=== PATIENT | male | born 1950 | race Caucasian/White ===

== ENCOUNTER 2018-01-13 15:53 | Outpatient (CLI) | payer MEDICARE, BC ==
--- NOTE | 2018-01-13 17:53 | MRI ---
MRI LUMBAR SPINE NONCONTRAST 01/13/18 HISTORY: Low back pain with radiculopathy. FINDINGS: Radiographs are not available for direct correlation, therefore the lowest lumbar type vertebra will be designated as L5, with the remainder numbered accordingly. Images including the retroperitoneum shows cysts arising from the cortex of the left kidney. Heteroge neity of the bone marrow has the appearance of fatty replacement. No edema is reliably demonstrated a side from type I discogenic end plate changes at the L5 and S1 levels. The conus medullaris has a normal appearance. T12-L1, L1-2, L2-3, L3-4: Mild osteophytosis. Central canal and neural foramina are patent. L4-5: Thecal sac is patent. Degenerative changes result in mild right and moderate left foraminal saira noses. L5-S1: Disc space narrowing. Minimal bulge. Thecal sac is patent. Degenerative changes result in mode rate bilateral foraminal stenoses. IMPRESSION: Mild to moderate degenerative changes of the lumbar spine, including bilateral foraminal stenosis at the lowest two levels, as detailed above. POS: SNEHA
== END 2018-01-13 15:54 | disposition home or self-care (01) ==
LOC: SCSMRI 15:53
PROVIDERS: ATTEND Psychiatry & Neurology Neurology
DX: M62.81 Muscle weakness (generalized) (principal); M47.896 Other spondylosis, lumbar region; M99.83 Other biomechanical lesions of lumbar region
CPT/HCPCS: 72148

== ENCOUNTER 2020-02-20 09:47 | Outpatient (CLI) | payer MEDICARE, BC ==
--- NOTE | 2020-02-20 11:27 | MRI ---
MRI OF THE LEFT KNEE WITHOUT CONTRAST: INDICATION: Left knee pain. COMPARISON: None. FINDINGS: There is a small joint effusion and small popliteal cyst. There is full-thickness soft tissue cartilage fissuring involving the medial patellar facet measuring 1.8 mm without underlying edema. There is mild diffuse chondrosis. There is some mild irregularit y involving the central trochlea. There is heterogeneous hyperintense T2 signal involving the ACL consistent with changes of a mucoid d egenerative. There is degenerative subchondral cyst-like abnormality near the bed of the ACL. There is a horizontally oriented tear involving the body and posterior horn of the medial meniscus. The lateral meniscus appears intact. There is mild diffuse chondrosis involving the femorotibial compartments with a focal full-thickness defect involving the central lateral femoral condyle measuring approximately 7 mm. There are small m arginal osteophytes affecting the major compartments. The MCL, LCLC, PCL, and extensor mechanism are intact. IMPRESSION: 1. Mild osteoarthrosis of the left knee. 2. Medial meniscal tear. 3. 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 POS: BH
== END 2020-02-20 09:48 | disposition home or self-care (01) ==
LOC: MRI 09:47
PROVIDERS: ATTEND Orthopaedic Surgery
DX: M25.562 Pain in left knee (principal); S83.242D Other tear of medial meniscus, current injury, left knee, subsequent encounter; S83.512A Sprain of anterior cruciate ligament of left knee, initial encounter; M17.12 Unilateral primary osteoarthritis, left knee

== ENCOUNTER 2020-03-16 06:37 | Outpatient (CLI) | payer MEDICARE, BC, OTHER ==
[2020-03-16 18:00] LABS: #Eosinphils 0.2 thou/uL (0.0-0.7); #Lymphocytes 1.8 thou/uL (1.20-3.40); #Monocytes 0.5 thou/uL (0.11-0.59); #Neutrophils 3.5 thou/uL (1.40-6.50); %Basophils 0.3 % (0.0-1.0); %Eosinophils 3.2 % (0.0-10.0); %Lymphocytes 29.8 % (21.0-51.0); %Monocytes 8.5 % (0.0-10.0); %Neutrophils 58.2 % (42.0-75.0); Hemoglobin 13.9 g/dL (14.0-18.0); Mean Corpuscular HGB CONC 33.6 g/dL (32.0-36.0); Mean Corpuscular Hemoglobin 31.5 pg (27.0-31.0); Mean Corpuscular Volume 93.8 fL (78.0-98.0); Mean Platelet Volume 7.7 fL (7.4-10.4); Platelet Count 279 thou/uL (130-400); RBC Distribution Width 11.7 % (11.5-14.5); Red Blood Cell (RBC) Count 4.42 mill/uL (4.70-6.10)
[2020-03-16 18:08] LABS: Anion Gap 12 mmol/L (10-20); BUN (Urea Nitrogen) 16 mg/dL (8.4-25.7); Calc. Creatinine Clearance 0 mL/min (70-130); Calcium 9.6 mg/dL (7.8-10.44); Carbon Dioxide 27 mmol/L (23-31); Chloride 105 mmol/L (98-107); Estimated GFR-MDRD 62; Glucose 101 mg/dL (80-115); Sodium 140 mmol/L (136-145)
[2020-03-17 13:12] LABS: SARS-CoV-2 MS2 Positive; SARS-CoV-2 N Gene Negative; SARS-CoV-2 S Gene Negative; SARS-CoV-2 orf1ab Negative
== END 2020-03-16 06:38 | disposition home or self-care (01) ==
LOC: LABBT 06:37
PROVIDERS: ATTEND Orthopaedic Surgery
DX: Z01.812 Encounter for preprocedural laboratory examination (principal); Z11.59 Encounter for screening for other viral diseases; S83.207A Unspecified tear of unspecified meniscus, current injury, left knee, initial encounter
CPT/HCPCS: 80048; 85025; U0003; 87635

== ENCOUNTER 2020-03-21 05:55 | Day surgery (SDC) | payer MEDICARE, BC ==
[2020-03-15 15:47] VITALS: BMI 26.4
[2020-03-21] MEDS ORDERED: Fentanyl 100 MCG/2 ML VIAL ONE (06:26)
[2020-03-21] MEDS ORDERED: PROPOFOL 20 ML ONE (06:38)
[2020-03-21] MEDS ORDERED: PROPOFOL 200 MG/20 ML VIAL ONE (09:42)
[2020-03-21] MEDS ORDERED: Bupivacaine PF 0.5% 30 ML VIAL ONE (09:42)
[2020-03-21] MEDS ORDERED: Ondansetron PF 4 MG/2 ML Vial ONE (09:42)
[2020-03-21] MEDS ORDERED: EPHEDRINE 25 MG/5 ML SYRINGE ONE (09:42)
[2020-03-21] MEDS ORDERED: Lidocaine 2% w/Epinephrine 1:200K 20 ML VIAL ONE (09:42)
[2020-03-21] MEDS ORDERED: Dexamethasone 20 MG/5 ML VIAL ONE (09:42)
--- NOTE | 2020-03-21 18:02 | OP ---
DATE OF PROCEDURE: 03/21/2020 PREOPERATIVE DIAGNOSIS: Left knee medial and lateral meniscus tear. POSTOPERATIVE DIAGNOSIS: Left knee medial and lateral meniscus tear. PROCEDURES PERFORMED: Left knee arthroscopy, partial medial and lateral meniscectomies. DOOR REPAIRER BUS: None. ESTIMATED BLOOD LOSS: Minimal. COMPLICATIONS: None. ANESTHESIA: Patient did have a general anesthetic as well as a local knee block. DISPOSITION: He did go to the recovery room in stable condition. INDICATIONS: This is a 69-year-old male, who has been having problems with pain, catching, and swelling of the knee and at this time, he was found to have MRI confirmed meniscal tear and at this time opted to have surgery. DESCRIPTION OF PROCEDURE: After all appropriate consent forms were explained and signed, he was taken to the operating room and at this time was given general anesthetic. Once the level of the anesthesia was appropriate, a tourniquet was placed on left thigh and leg was placed in arthroscopic leg fajardo. The limb was then prepped and draped in standard surgical fashion. The limb was exsanguinated and tourniquet was taken up to 300 mmHg. Inferolateral portal was established. Scope was placed into the knee joint. A needle localization technique was then used to make a medial working portal. Diagnostic arthroscopy commenced in the notch. The ACL and PCL were probed, found to be intact. There was a cyst noted just distal to the ACL insertion on the tibia and underneath the small cyst, was a small excess piece of bone. This was removed using the SERFAS energy and the shaver. We turned our attention to the medial compartment. Medial meniscus was found to have a tear and a partial meniscectomy was performed using meniscal biter and shaver back to a stable base. Overall, the cartilage on the femur and tibia were in pretty good condition. There was some grade 2 changes on some areas of the femur. No grade 4 lesions were noted. The lateral compartment was then evaluated. A small tear was noted in the posterior horn of the lateral meniscus and a meniscal biter and shaver was used to perform partial meniscectomy back to a stable base. The lateral femur was in good condition as far as cartilage was concerned, there was some significant chondral changes in the middle portion of the lateral tibial plateau equal to grade 2 and 3 changes. Unstable chondral flaps were removed. Patellofemoral joint was then evaluated and found to be in good condition overall, and both medial and lateral gutters were swept through. No loose bodies being noted. At this time, scope was removed. Knee was drained. Portals were closed with simple nylon stitch. Bulky sterile dressing was then applied. Tourniquet was let down. Toes pinked up nicely. The patient was awakened and taken to the recovery room in stable condition. All counts were correct at the end of the case. He did receive preoperative IV antibiotics. Job ID: [id number]
[2020-03-22] MEDS ORDERED: Bupivacaine PF 0.5% 30 ML VIAL FS SCH (08:45)
[2020-03-22] MEDS ORDERED: Lidocaine 2% w/Epinephrine 1:200K 20 ML VIAL NERVE BLCK SCH (08:45)
== END 2020-03-21 10:27 | disposition home or self-care (01) ==
LOC: SDC 05:55
PROVIDERS: ATTEND Orthopaedic Surgery
PROC: 0SBD4ZZ Excision of Left Knee Joint, Percutaneous Endoscopic Approach (ICD-10-PCS; principal; 2020-03-21)
PROC: 0SBD4ZZ Excision of Left Knee Joint, Percutaneous Endoscopic Approach (ICD-10-PCS; 2020-03-21)
DX: S83.242A Other tear of medial meniscus, current injury, left knee, initial encounter (principal); S83.282A Other tear of lateral meniscus, current injury, left knee, initial encounter; M25.862 Other specified joint disorders, left knee; I10 Essential (primary) hypertension; J45.909 Unspecified asthma, uncomplicated; E03.9 Hypothyroidism, unspecified; M10.9 Gout, unspecified; E78.5 Hyperlipidemia, unspecified; K21.9 Gastro-esophageal reflux disease without esophagitis; Z79.82 Long term (current) use of aspirin; Z79.899 Other long term (current) drug therapy; W18.42XA Slipping, tripping and stumbling without falling due to stepping into hole or opening, initial encounter
CPT/HCPCS: J0690; J1100; J2405; J2704; J3010; S0020